=== PATIENT | male | born 1960 | race Two or more races ===

== ENCOUNTER 2017-06-15 14:59 | Emergency (ER) | payer OTHER ==
[~2017-06-15] VITALS: Ht 170.2 cm; Wt 87.1 kg
[2017-06-15] MEDS ORDERED: AVAPRO75 MG PO (15:24)
[2017-06-15] MEDS ORDERED: TIROSINT25 MCG PO (15:24)
[2017-06-15] MEDS ORDERED: SIMVASTATIN20 MG PO (15:24)
== END 2017-06-15 21:04 | disposition home or self-care (01) ==
LOC: ER 14:59
DX: R00.2 Palpitations (principal); F41.8 Other specified anxiety disorders